=== PATIENT | female | born 1990 | race Caucasian/White ===

== ENCOUNTER 2021-08-09 08:12 | Outpatient (CLI) | payer OTHER, SELFPAY ==
[2021-08-09 15:55] LABS: SARS-CoV-2 PCR by NAA Not Detected (NotDetected)
== END 2021-08-09 08:13 | disposition home or self-care (01) ==
LOC: CSHLAB 08:12
PROVIDERS: ATTEND Obstetrics & Gynecology
DX: Z20.822 Contact with and (suspected) exposure to COVID-19 (principal)
CPT/HCPCS: U0003; U0005

== ENCOUNTER 2021-08-11 07:15 | Day surgery (SDC) | payer OTHER ==
[2021-08-09 10:43] VITALS: BMI 23.3
[2021-08-11] MEDS ORDERED: Lidocaine 1% MPF 2 ML VIAL ONE (07:52)
[2021-08-11] MEDS ORDERED: Scopolamine 1.5 mg/72 hour Patch ONE (08:03)
[2021-08-11] MEDS ORDERED: Famotidine/PF 20 mg/2ml Vial ONE (08:04)
[2021-08-11] MEDS ORDERED: Midazolam HCl 2 mg/2 ml Vial ONE (08:04)
[2021-08-11] MEDS ORDERED: Fentanyl 100 MCG/2 ML VIAL ONE ×2 (08:05→08:53)
[2021-08-11] MEDS ORDERED: Ketorolac Tromethamine 30 MG/ML VIAL ONE (08:05)
[2021-08-11] MEDS ORDERED: PROPOFOL 20 ML ONE (08:05)
[2021-08-11] MEDS ORDERED: Lidocaine 1% PF 5 ML VIAL ONE (08:05)
[2021-08-11] MEDS ORDERED: Ondansetron PF 4 MG/2 ML Vial ONE (08:05)
[2021-08-11] MEDS ORDERED: Dexamethasone 4 mg/ml Vial ONE (08:05)
[2021-08-11] MEDS ORDERED: CEFAZOLIN 1 GM VIAL ONE (08:11)
[2021-08-11] MEDS ORDERED: Oxytocin 10 UNITS/ML VIAL ONE (08:46)
[2021-08-11] MEDS ORDERED: Silver Nitrate Application 1 EACH ONE (08:47)
[2021-08-11] MEDS ORDERED: Methylergonovine 0.2 MG/ML VIAL ONE (09:02)
[2021-08-11] MEDS ORDERED: Methylergonovine 0.2 MG TAB PO SCH (10:30)
== END 2021-08-11 11:38 | disposition home or self-care (01) ==
LOC: CSHSDC 07:15
PROVIDERS: ATTEND Obstetrics & Gynecology
PROC: 10D17ZZ Extraction of Products of Conception, Retained, Via Natural or Artificial Opening (ICD-10-PCS; principal; 2021-08-11)
DX: O02.1 Missed abortion (principal); K21.9 Gastro-esophageal reflux disease without esophagitis; I10 Essential (primary) hypertension; Z91.018 Allergy to other foods
CPT/HCPCS: 88305; J0690; J1100; J1885; J2210; J2250; J2405; J2590; J2704; J3010; S0028